=== PATIENT | female | born 1945 | race Caucasian/White ===

== ENCOUNTER 2016-08-01 09:17 | Emergency (ER) | payer MEDICARE, BC | END 2016-08-01 09:45 | disposition home or self-care (01) | LOC: BURERS 09:17 | DX: I10 Essential (primary) hypertension (principal); E78.5 Hyperlipidemia, unspecified; E78.00 Pure hypercholesterolemia, unspecified; Z79.899 Other long term (current) drug therapy | CPT/HCPCS: 99283 ==